=== PATIENT | male | born 1945 | race Two or more races ===

== ENCOUNTER 2016-07-25 17:52 | Emergency (ER) | payer OTHER ==
[~2016-07-25] VITALS: Ht 185.4 cm; Wt 111.1 kg
[2016-07-25 18:06] VITALS: BP 149/76
[2016-07-25 18:29] LABS: Basophils # (auto) 0 uL; Basophils % (auto) 0.3 % (0.0-2.0); Eosinophils # (auto) 0 uL; Eosinophils % (auto) 0.8 % (0.0-7.0); Hematocrit 44.1 % (41.0-53.0); Hemoglobin 15.2 g/dL (13.5-17.5); Lymphocytes # (auto) 1.1 uL; Lymphocytes % (auto) 20.2 % (10.0-50.0); Mean Corpuscular Hgb Conc. 34.5 g/dL (32.0-36.0); Mean Corpuscular Volume 92.8 fL (80.0-100.0); Mean Platelet Volume 9.1 fL (7.4-10.4); Monocytes # (auto) 0.4 uL; Neutrophils # (auto) 3.8 uL; Neutrophils % (auto) 70.7 % (37.0-80.0); Platelet Count (auto) 140 10^3/uL (140-450); Red Cell Distribution Width 13.7 % (11.6-16.0); White Blood Cell 5.4 10^3/uL (4.4-10.8)
[2016-07-25 18:48] LABS: Albumin 3.4 g/dL (3.4-5.0); Anion Gap 9 (5-15); Aspartate Aminotransferase 17 U/L (15-37); BUN/Creatinine Ratio 14.9; Blood Urea Nitrogen 15 mg/dL (7-18); Calcium 8.2 mg/dL (8.5-10.1); Carbon Dioxide 27 mmol/L (21-32); Chloride 103 mmol/L (98-107); GFR African American 94 mL/min; GFR Non-African American 78 mL/min; Glucose 175 mg/dL (74-106); Magnesium 2.3 mg/dL (1.6-2.6); Potassium 3.4 mmol/L (3.5-5.1); Sodium 139 mmol/L (136-145)
[2016-07-25 18:54] LABS: Alkaline Phosphatase 103 U/L (45-117); Bilirubin, Total 0.4 mg/dL (0.2-1.0); Total Protein 7.7 g/dL (6.4-8.2)
[2016-07-25 19:02] LABS: Urine Bilirubin Negative (Negative); Urine Blood 1+ /uL (Negative); Urine Color Yellow (Yellow); Urine Glucose 1+ mg/dL (Normal); Urine Ketone Negative (Negative); Urine Mucus FEW (None Seen); Urine Nitrite Negative (Negative); Urine RBC 3 /hpf (0 - 3); Urine Squamous Epithelial Cell FEW /hpf (<5); Urine Urobilinogen Normal (Negative); Urine pH 5.5 (5.0-8.0)
== END 2016-07-25 22:40 | disposition left against medical advice (07) ==
LOC: ER 17:52
DX: R10.9 Unspecified abdominal pain (principal); M54.5 Low back pain; Z53.21 Procedure and treatment not carried out due to patient leaving prior to being seen by health care provider
CPT/HCPCS: 36415; 80053; 81001; 83735; 84484; 85025; 93005

== ENCOUNTER 2017-03-24 11:21 | Emergency (ER) | payer OTHER ==
[2017-03-24 12:56] VITALS: BP 146/80
[2017-03-24] MEDS ORDERED: LIDOCAINE 1% HCL (LOCAL ANESTH.) INJ 20ML MDV IN ONE (13:15)
[2017-03-24] MEDS ORDERED: cefTRIAXone SOD 1,000 MG VL IM ONE (13:30)
== END 2017-03-24 13:54 | disposition home or self-care (01) ==
LOC: ER 11:21
DX: L02.411 Cutaneous abscess of right axilla (principal); F17.210 Nicotine dependence, cigarettes, uncomplicated; Z88.0 Allergy status to penicillin
CPT/HCPCS: 10060; 96372; 99283; J0696

== ENCOUNTER 2017-03-26 10:06 | Emergency (ER) | payer OTHER ==
[~2017-03-26] VITALS: Ht 182.9 cm; Wt 111.1 kg
[2017-03-26 10:45] VITALS: BP 133/62
== END 2017-03-26 11:30 | disposition home or self-care (01) ==
LOC: ER 10:06
DX: L02.411 Cutaneous abscess of right axilla (principal); F17.210 Nicotine dependence, cigarettes, uncomplicated; Z48.01 Encounter for change or removal of surgical wound dressing; Z88.0 Allergy status to penicillin

== ENCOUNTER 2023-12-19 10:12 | Inpatient (IN) | payer OTHER ==
[~2023-12-19] VITALS: Ht 182.9 cm; Wt 81.0 kg
[2023-12-19 10:33] LABS: Urine Bacteria None Seen /hpf (None Seen)
[2023-12-19 10:51] LABS: Basophils # (auto) 0 10 ^3/uL (0-0.2); Basophils % (auto) 0.2 % (0.0-2.0); Eosinophils # (auto) 0 10 ^3/uL (0-0.8); Eosinophils % (auto) 0.2 % (0.0-7.0); Hematocrit 46.5 % (41.0-53.0); Hemoglobin 16.4 g/dL (13.5-17.5); Lymphocytes # (auto) 0.9 10 ^3/uL (0.4-5.4); Lymphocytes % (auto) 8.9 % (10.0-50.0); Mean Corpuscular Hemoglobin 33.1 pg (28.0-32.0); Mean Corpuscular Hgb Conc. 35.2 g/dL (32.0-36.0); Mean Corpuscular Volume 93.9 fL (80.0-100.0); Monocytes # (auto) 0.6 10 ^3/uL (0-1.3); Monocytes % (auto) 6.3 % (0.0-12.0); Neutrophils # (auto) 8.5 10 ^3/uL (1.6-8.6); Neutrophils % (auto) 84.4 % (37.0-80.0); Platelet Count (auto) 147 10^3/uL (140-450); Red Blood Cells 4.95 10^6/uL (4.5-5.90); Red Cell Distribution Width 13.5 % (11.8-14.3); White Blood Cell 10.1 10^3/uL (4.4-10.8)
[2023-12-19 11:11] LABS: Alanine Aminotransferase 17 U/L (7-40); Albumin 4.2 g/dL (3.2-4.8); Alkaline Phosphatase 125 U/L (46-116); Anion Gap 6 (5-15); Aspartate Aminotransferase 13 U/L (13-40); BUN/Creatinine Ratio 9.3 (10.0-20.0); Bilirubin, Total 0.7 mg/dL (0.2-1.0); Blood Urea Nitrogen 10 mg/dL (9-23); Calcium 9.6 mg/dL (8.7-10.4); Carbon Dioxide 24 mmol/L (20-30); Chloride 106 mmol/L (98-107); Glucose 225 mg/dL (74-106); Potassium 3.7 mmol/L (3.5-5.1); Sodium 136 mmol/L (136-145); Total Protein 7.9 g/dL (5.7-8.2)
[2023-12-19 11:13] LABS: Urine Blood 1+ /uL (Negative); Urine Clarity Clear (Clear); Urine Color Light-Yellow (Yellow); Urine Mucus FEW (None Seen); Urine Protein, UAD 1+ (Negative); Urine Specific Gravity 1.016 (1.001-1.035); Urine Urobilinogen Normal (Negative); Urine WBC <1 /hpf (0 - 3)
[2023-12-19 11:51] VITALS: TEMP 98.5
[2023-12-19] MEDS: ASPirin 325 MG TAB PO ONE (11:57)
[2023-12-19] MEDS: NITROGLYCERIN 0.4 MG SL TAB SL ONE (11:58)
[2023-12-19] MEDS ORDERED: HYDROcodone-ACET 5/325MG TAB PO PRN (12:45)
[2023-12-19] MEDS ORDERED: ACETAMINOPHEN 325 MG TAB PO PRN (12:45)
[2023-12-19] MEDS ORDERED: DOCUSATE SOD 100 MG CAP PO PRN (12:45)
[2023-12-19] MEDS ORDERED: DEXTROSE (50%) 50ML SYRG IV PRN (12:45)
[2023-12-19] MEDS ORDERED: NITROGLYCERIN 0.4 MG SL TAB SL PRN (12:45)
[2023-12-19] MEDS ORDERED: MORPHINE SULFATE INJ 2 MG/ml SYRG IV PRN ×2 (12:45)
[2023-12-19] MEDS ORDERED: TEMAZEPAM 15 MG CAP PO PRN (12:45)
[2023-12-19] MEDS ORDERED: ONDANSETRON HCL 4 MG/2 ML VIAL IV PRN (12:45)
[2023-12-19] MEDS: ACCU-CHEK COMFORT CURVE STRIP VI SCH (17:00)
[2023-12-19 18:00] VITALS: BP 118/62; PULSE 80; RESP 16; O2SAT 98
[2023-12-19] MEDS: InsuLIN REG 1unit/0.01ml Soln (100units/ml) SC SCH (19:09)
[2023-12-19] MEDS ORDERED: InsuLIN REG 1unit/0.01ml Soln (100units/ml) SC SCH (22:00)
[2023-12-20] MEDS ORDERED: ENOXAPARIN SOD 40 MG/0.4 ML SYRINGE SC SCH (10:00)
[2023-12-20] MEDS ORDERED: PANTOPRAZOLE 40 MG/10 ML VIAL INJ IV SCH (10:00)
== END 2023-12-19 20:56 | disposition left against medical advice (07) | DRG 313 ==
LOC: ER 10:12 → TELE 12:35
PROVIDERS: ADMIT Nurse Practitioner; ATTEND Nurse Practitioner
DX: R07.89 Other chest pain (principal); E11.65 Type 2 diabetes mellitus with hyperglycemia; I10 Essential (primary) hypertension; Z53.29 Procedure and treatment not carried out because of patient's decision for other reasons; F17.210 Nicotine dependence, cigarettes, uncomplicated; Z88.0 Allergy status to penicillin
CPT/HCPCS: 36415; 71045; 80053; 81001; 82962; 83690; 84484; 85025; 93005; G0378; J1815